=== PATIENT | female | born 1965 | race Caucasian/White ===

== ENCOUNTER → 2020-07-26 | Outpatient (CLI) | payer BC ==
[~2020-07-26] MED LIST: CLARITIN 1010 MG/TAB PO; FLONASEALLERGY NS; GLUCOPHAGE500 MG/TAB PO; MELATONIN5 M1 SL; NEXIUM 24HR20 M1 PO; TOPROL XL 25MG25 MG PO; XANAX 0.5MG0.5 MG PO; XYZAL5 MG PO
== END ==
LOC: MC.RAD 07:15
DX: Z12.31 Encounter for screening mammogram for malignant neoplasm of breast (principal)

== ENCOUNTER 2020-07-27 08:14 | Day surgery (SDC) | payer BC ==
[~2020-07-27] VITALS: Ht 175.3 cm; Wt 163.0 kg
[2020-07-27] MEDS ORDERED: XANAX 0.5MG0.5 MG PO (08:28)
[2020-07-27] MEDS ORDERED: GLUCOPHAGE500 MG/TAB PO (08:28)
[2020-07-27] MEDS ORDERED: CLARITIN 1010 MG/TAB PO (08:29)
[2020-07-27] MEDS ORDERED: NEXIUM 24HR20 M1 PO (08:29)
[2020-07-27] MEDS ORDERED: TOPROL XL 25MG25 MG PO (08:29)
[2020-07-27] MEDS ORDERED: MELATONIN5 M1 SL (08:30)
[2020-07-27] MEDS ORDERED: FLONASEALLERGY NS (08:30)
[2020-07-27] MEDS ORDERED: XYZAL5 MG PO (08:30)
[2020-07-27 08:31] VITALS: BP 124/89; PULSE 99; TEMP 98
[2020-07-27 09:40] VITALS: BP 131/77; PULSE 91; TEMP 97.8
--- NOTE | 2020-07-27 09:59 | NUR ---
PT RETURNED FROM ENDO PROCEDURE ROOM INTO BAY #3. PT DENIES PAIN OR NAUSEA AND VOMITING. LUNGS CLEAR, HRR, BOWEL SOUNDS AUDIBLE. VSS, AFEBRILE. PT TOLERATING BLUEBERRY MUFFIN AND PEPSI. WILL MONITOR.
[2020-07-27 10:02] VITALS: BP 132/76; PULSE 93
--- NOTE | 2020-07-27 10:02 | NUR ---
PT TOLERATING FOOD AND FLUIDS. DENIES PAIN , DISCOMFORT AND NAUSEA. VSS. WILL MONITOR.
--- NOTE | 2020-07-27 11:24 | NUR ---
PT TOLERATING FOOD AND FLUID. IV DC'D. DISCHARGE INSTRUCTIONS SIGNED, DENIES QUESTIONS. PT TAKEN TO FAMILY VEHICLE TO FAMILY CAR. PT BROTHER, PERLA IS DRIVING.
== END 2020-07-27 10:25 | disposition home or self-care (01) ==
LOC: SDCO 08:14
DX: Z12.11 Encounter for screening for malignant neoplasm of colon (principal); K57.30 Diverticulosis of large intestine without perforation or abscess without bleeding; I10 Essential (primary) hypertension; K21.9 Gastro-esophageal reflux disease without esophagitis; E28.2 Polycystic ovarian syndrome; Z90.49 Acquired absence of other specified parts of digestive tract; Z79.84 Long term (current) use of oral hypoglycemic drugs
CPT/HCPCS: J2704; J3010; J7030